=== PATIENT | male | born 1990 | race African-American/Black ===

== ENCOUNTER 2016-05-12 11:02 | Emergency (ER) | payer SELFPAY ==
[~2016-05-12] VITALS: Ht 180.3 cm; Wt 82.0 kg
[2016-05-12 11:07] VITALS: BP 147/81
== END 2016-05-12 12:07 | disposition left against medical advice (07) ==
LOC: ER 11:42
DX: Z53.21 Procedure and treatment not carried out due to patient leaving prior to being seen by health care provider (principal); S51.811A Laceration without foreign body of right forearm, initial encounter; W25.XXXA Contact with sharp glass, initial encounter; Y93.89 Activity, other specified; Y92.89 Other specified places as the place of occurrence of the external cause